=== PATIENT | female | born 1970 | race Two or more races ===

== ENCOUNTER 2017-12-23 12:51 | Emergency (ER) | payer OTHER ==
[~2017-12-23] VITALS: Ht 157.5 cm; Wt 68.0 kg
[2017-12-24] MEDS ORDERED: XYZAL5 MG PO (22:34)
== END 2017-12-23 14:26 | disposition home or self-care (01) ==
LOC: ER 12:51
DX: L03.115 Cellulitis of right lower limb (principal)

== ENCOUNTER 2017-12-24 20:18 | Emergency (ER) | payer OTHER ==
[~2017-12-24] VITALS: Ht 157.5 cm; Wt 68.0 kg
[2017-12-24] MEDS ORDERED: XYZAL5 MG PO (22:34)
== END 2017-12-24 22:51 | disposition home or self-care (01) ==
LOC: ER 20:18
DX: J30.89 Other allergic rhinitis (principal)